=== PATIENT | male | born 1955 | race Caucasian/White ===

== ENCOUNTER 2020-04-04 05:41 | Inpatient (IN) ==
[2020-03-27 11:40] LABS: Basophils # 0.1 10*3/uL (0.0-0.2); Eosinophils # 0.2 10*3/uL (0.0-0.87); Eosinophils % 3.2 % (0.00-10.9); Hematocrit 36.8 VOL% (42.0-52.0); Hemoglobin 12.5 GM/DL (14.0-18.0); Immature Granulocytes % 0.4 %; Immature Granulocytes Absolute 0.03 #; Lymphocytes # 1.7 10*3/uL (1.4-4.0); Lymphocytes % 23.6 % (21.2-54.2); Mean Corpuscular Volume 88.2 FL (87-102); Mean Platelet Volume 10.5 FL (9.6-12.0); Monocytes % 6.3 % (1.7-12.7); Neutrophils % 65.5 % (38.7-73.9); Platelet Count 211 T/CUMM (130-400); Red Blood Count 4.17 MC/CUMM (3.8-5.5); Red Cell Distribution Width 12.5 % (9.3-17.3); White Blood Count 7.2 T/CUMM (4-12)
[2020-03-27 11:44] LABS: Apearance,Urine Slightly Hazy (Clear); Bacteria,Urine Occasional /HPF (Few); Bilirubin,Urine Negative (Negative); Blood, Urine Negative (Negative); Glucose,Urine (UA) 50 mg/dL (Negative); Ketones,Urine Negative (Negative); Mucus,Urine Occasional /LPF (Occasional); Nitrite,Urine Negative (Negative); Protein,Urine Negative; RBC,Urine 1 /HPF (0-4); Urine Color Yellow (Yellow); Urine Specific Gravity 1.019 (1.001-1.035); Urine Urobilinogen < 2.0 EU/DL (0.2-1.0); WBC,Urine 1 /HPF (0-6)
[2020-03-27 12:13] LABS: Calcium 9.2 MG/DL (8.5-10.1); Osmolality,Calculated 286.7 MOS/KG (273-304)
[~2020-04-04 05:41] MED LIST: TOBRAMYCIN INJ 80 MG in SODIUM CHLORIDE 0.9% 100 ML IV ONE
[2020-04-04] MEDS ORDERED: LACTATED RINGERS 1,000 ML IV SCH (06:30)
[2020-04-04] MEDS ORDERED: FAMOTIDINE 20 MG TABLET ONE (06:31)
[2020-04-04] MEDS ORDERED: TOBRAMYCIN 80 MG/2 ML VIAL ONE (06:31)
[2020-04-04] MEDS ORDERED: FAMOTIDINE 20 MG TABLET PO ONE (06:59)
[2020-04-04] MEDS ORDERED: ONDANSETRON 4 MG/2 ML VIAL IV PRN ×2 (10:01→10:45)
[2020-04-04] MEDS ORDERED: diphenhydrAMINE 50 MG/1 ML VIAL IV PRN (10:01)
[2020-04-04] MEDS ORDERED: propofoL 200 MG/20 ML VIAL IV ONE (10:19)
[2020-04-04] MEDS ORDERED: PHENYLEPHRINE 1 MG/10 ML SYRINGE IV ONE (10:20)
[2020-04-04] MEDS ORDERED: SEVOFLURANE 1 UNIT/15 MINUTE INH ONE (10:20)
[2020-04-04] MEDS ORDERED: ONDANSETRON 4 MG/2 ML VIAL ONE (10:20)
[2020-04-04] MEDS ORDERED: fentaNYL 250 MCG/5 ML VIAL ONE (10:20)
[2020-04-04] MEDS ORDERED: ACETAMINOPHEN 1,000 MG/100 ML VIAL IV ONE (10:20)
[2020-04-04] MEDS ORDERED: MIDAZOLAM 2 MG/2 ML VIAL ONE (10:20)
[2020-04-04] MEDS ORDERED: LIDOCAINE 2% 5 ML VIAL ONE (10:20)
[2020-04-04] MEDS ORDERED: ROCURONIUM 100 MG/10 ML VIAL IV ONE (10:21)
[2020-04-04] MEDS ORDERED: LACTATED RINGERS 1,000 ML IV ONE (10:21)
[2020-04-04 10:30] LABS: Apearance,Urine CLEAR (Clear); Bilirubin,Urine Negative (Negative); Blood, Urine Moderate mg/dL (Negative); Glucose,Urine (UA) 150 mg/dL (Negative); Hyaline Casts,Urine 1 /LPF (0-3); Ketones,Urine Negative (Negative); Mucus,Urine Occasional /LPF (Occasional); Nitrite,Urine Negative (Negative); Protein,Urine Negative; RBC,Urine 13 /HPF (0-4); Urine Color Yellow (Yellow); Urine Specific Gravity 1.017 (1.001-1.035); Urine Urobilinogen < 2.0 EU/DL (0.2-1.0); WBC,Urine 1 /HPF (0-6)
[2020-04-04] MEDS: HYDROmorphone 2 MG/1 ML VIAL IV PRN ×2 (10:45→10:50)
[2020-04-04] MEDS: HYDROmorphone PCA 30 MG/30 ML SYRINGE IV SCH (13:03)
[2020-04-04] MEDS: SODIUM CHLORIDE 0.45% 1,000 ML IV SCH (13:30)
[2020-04-05 06:00] LABS: Basophils # 0.1 10*3/uL (0.0-0.2); Basophils % 0.9 % (0.0-0.8); Eosinophils # 0.2 10*3/uL (0.0-0.87); Eosinophils % 2.5 % (0.00-10.9); Hemoglobin 12.1 GM/DL (14.0-18.0); Immature Granulocytes % 0.4 %; Immature Granulocytes Absolute 0.04 #; Lymphocytes # 1.4 10*3/uL (1.4-4.0); Lymphocytes % 15.4 % (21.2-54.2); Mean Corpuscular HGB Conc 34.6 GM/DL (32-36); Mean Corpuscular Volume 89.1 FL (87-102); Mean Platelet Volume 10.3 FL (9.6-12.0); Monocytes % 6.4 % (1.7-12.7); Neutrophils % 74.4 % (38.7-73.9); Platelet Count 181 T/CUMM (130-400); Red Blood Count 3.93 MC/CUMM (3.8-5.5); Red Cell Distribution Width 12.6 % (9.3-17.3); White Blood Count 9.1 T/CUMM (4-12)
[2020-04-05 06:29] LABS: Calcium 8.8 MG/DL (8.5-10.1)
[2020-04-05] MEDS: SODIUM CHLORIDE 0.45% 1,000 ML IV SCH ×2 (07:59→12:29)
[2020-04-05] MEDS: HYDROmorphone PCA 30 MG/30 ML SYRINGE IV SCH (12:29)
[2020-04-05] MEDS: oxyCODONE/ACETAMINOPHEN 5-325 MG TABLET PO PRN ×3 (13:50→21:24)
[2020-04-05] MEDS: MAGNESIUM HYDROXIDE SUSP 30 ML UDCUP PO PRN (15:11)
[2020-04-05] MEDS ORDERED: sitaGLIPtin 100 MG TABLET PO SCH (19:00)
[2020-04-05] MEDS ORDERED: SIMVASTATIN 40 MG TABLET PO SCH (21:00)
[2020-04-05] MEDS ORDERED: NIACIN ER 500 MG TABLET PO SCH (21:00)
[2020-04-05] MEDS: carvediloL 12.5 MG TABLET PO SCH (21:23)
[2020-04-05] MEDS: GLIMEPIRIDE 2 MG TABLET PO SCH (21:23)
[2020-04-05] MEDS: FERROUS SULFATE 325 MG TABLET PO SCH (21:24)
[2020-04-06] MEDS: oxyCODONE/ACETAMINOPHEN 5-325 MG TABLET PO PRN ×3 (01:16→09:11)
[2020-04-06] MEDS: MAGNESIUM HYDROXIDE SUSP 30 ML UDCUP PO PRN (05:35)
[2020-04-06] MEDS: GLIMEPIRIDE 2 MG TABLET PO SCH (08:21)
[2020-04-06] MEDS: carvediloL 12.5 MG TABLET PO SCH (08:21)
[2020-04-06] MEDS: FERROUS SULFATE 325 MG TABLET PO SCH (08:21)
[2020-04-06] MEDS ORDERED: lisinopriL 5 MG TABLET PO SCH (09:00)
[2020-04-06] MEDS ORDERED: CLOPIDOGREL 75 MG TABLET PO SCH (09:00)
[2020-04-06 12:15] VITALS: BP 109/67
[2020-04-09 23:41] LABS: Stone Analysis Interpretation 100% Uric acid
== END 2020-04-06 14:05 | disposition home or self-care (01) | DRG 660 ==
LOC: N.OR 05:41 → N.SDSINP 05:44 → N.4E 11:17
PROVIDERS: ADMIT Urology; ATTEND Urology